=== PATIENT | female | born 1990 | race American Indian/Alaskan Native ===

== ENCOUNTER 2017-10-29 22:06 | Emergency (ER) | payer MEDICAID ==
[2017-10-29 22:28] VITALS: BP 123/69
[2017-10-29 23:03] LABS: Bilirubin,Urine NEG (Negative); Blood,Urine NEG (Negative); Color,Urine Yellow (Yellow); Mucus,Urine FEW /HPF; Protein,Urine <15 mg/dL mg/dL (Negative); Urobilinogen,Urine < 2.0 mg/dL (<2.0)
[2017-10-29 23:11] LABS: Basophils % (Auto) 0.6 % (0.0-1.8); Eosinophils # (Auto) 0.1 K/mm3 (0.0-0.4); Eosinophils % (Auto) 0.8 % (0.0-4.3); Hematocrit 37.1 % (30.3-42.9); Hemoglobin 11.8 gm/dl (10.1-14.3); Lymphocytes # (Auto) 2.3 K/mm3 (1.2-5.4); Lymphocytes % (Auto) 31.1 % (13.4-35.0); Mean Corpuscular HGB Conc 32 % (30-34); Mean Corpuscular Hemoglobin 28 pg (28-32); Mean Corpuscular Volume 89 fl (79-97); Monocytes # (Auto) 0.6 K/mm3 (0.0-0.8); Monocytes % (Auto) 8.3 % (0.0-7.3); Platelet Count 350 K/mm3 (140-440); Red Blood Count 4.17 M/mm3 (3.65-5.03); Red Cell Distribution Width 13.8 % (13.2-15.2)
[2017-10-29 23:27] LABS: Alanine Aminotransferase 11 units/L (7-56); Albumin 3.9 g/dL (3.9-5); BUN/Creatinine Ratio 16; Blood Urea Nitrogen 13 mg/dL (7-17); Calcium 8.7 mg/dL (8.4-10.2); Hemolysis Index 28
== END 2017-10-30 01:06 | disposition left against medical advice (07) ==
LOC: ED 22:06
DX: M54.9 Dorsalgia, unspecified (principal); Z53.21 Procedure and treatment not carried out due to patient leaving prior to being seen by health care provider
CPT/HCPCS: 36415; 80053; 81001; 84703; 85025

== ENCOUNTER 2018-04-22 14:13 | Outpatient (CLI) | payer MEDICAID ==
[2018-04-22 14:37] VITALS: BP 109/69
[2018-04-22] MEDS ORDERED: LACTATED RINGERS 500 ML IV ONE (15:00)
[2018-04-22 15:25] LABS: Bilirubin,Urine NEG (Negative); Blood,Urine NEG (Negative); Color,Urine Amber (Yellow); Mucus,Urine 2+ /HPF
[2018-04-22] MEDS ORDERED: BRETHINE ONE (16:20)
[2018-04-22] MEDS ORDERED: BRETHINE SUB-Q ONE (16:22)
== END 2018-04-22 17:15 | disposition home or self-care (01) ==
LOC: TRG 14:13
PROVIDERS: ATTEND Obstetrics & Gynecology
DX: O47.03 False labor before 37 completed weeks of gestation, third trimester (principal); Z3A.31 31 weeks gestation of pregnancy
CPT/HCPCS: 36415; 81001; 82731; J3105; J7120

== ENCOUNTER 2018-04-22 20:15 | Outpatient (CLI) | payer MEDICAID ==
[2018-04-22] MEDS ORDERED: TYLENOL PO ONE (21:20)
[2018-04-22] MEDS ORDERED: MACROBID PO ONE (21:20)
[2018-04-22 21:23] VITALS: BP 109/69
== END 2018-04-22 22:53 | disposition home or self-care (01) ==
LOC: TRG 20:15
PROVIDERS: ATTEND Obstetrics & Gynecology
DX: O47.03 False labor before 37 completed weeks of gestation, third trimester (principal); Z3A.31 31 weeks gestation of pregnancy
CPT/HCPCS: 59025

== ENCOUNTER 2018-07-31 08:34 | Day surgery (SDC) | payer MEDICAID ==
--- NOTE | 2018-07-27 17:48 | History and Physical Report ---
History of Present Illness Date of examination: 07/27/18 Date of admission: 07/31/2018 Chief complaint: here for tubal ligation History of present illness: Visit Type: Pre-Op CC: pre op. History of Present Illness: pt presents for pre op: Tubal ...meredith Patient here for pre op for BTL. All risk/benefits/alternatives were d/w pt and questions were addressed and answered. Consents were signed and placed on the chart. Pt was given pre op and post op instructions. Copies of the consents were also given to pt to present at the time of the surgery. Vital Signs: Patient Profile: 28 Years Old Female LMP: 07/23/2018 Height: 60 inches Weight: 163 pounds BMI: 31.83 BP sittin / 64 (left arm) Menstrual History: LMP (date): 07/23/2018 LMP - Character: heavy Current Method of Contraception: Abstinence [OB-New Pt-Past Preg Hx-CCC] [employer] History Uterine Surgery (not C/S): negative Operations: TAB Denies any prior history of complications from anesthesia. Abnormal PAP: negative Uterine Anomaly: negative LUANNE Exposure: negative Infertility: negative Infection History HIV Risk Eval: no TB exposure: no Personal hx. of genital herpes: no Partner hx. of genital herpes: no Hx of STD: none Active Medications (reviewed today): ANUSOL-HC 2.5 % RECTAL CREAM (HYDROCORTISONE) apply bid prn hemorroid pain Current Allergies (reviewed today): * PENICILLIN (Critical) Past Medical History: Reviewed history from 12/06/2017 and no changes required: Negative Past Medical History Past Surgical History: Reviewed history from 12/06/2017 and no changes required: TAB Denies any prior history of complications from anesthesia. [--[facility]] Risk Factors: Smoked Tobacco Use: Never smoker Smokeless Tobacco Use: Never Drug use: no HIV high-risk behavior: no Alcohol use: no Seatbelt use: 100 % [[facility]] [Labs In-House] Physical Exam Appearance: well developed, well nourished, no acute distress Other Exams Lungs: no rales, rhonchi, or wheezes Heart: S1, S2, no murmur, rub, or gallop Abdomen: soft, non-tender, no masses, bowel sounds normal Extremities: normal alignment, no joint enlargement, crepitus, masses or tenderness; normal tone and strength Genitourinary Exam Vulva: normal, no lesions or discharge Urethral meatus: normal size and location, no lesions or discharge Urethra: no discharge Bladder: no cystocele Vagina: normal appearance, no discharge, lesions. No evidence of cystocele or rectocele. Cervix: normal appearance, no lesions, no discharge Uterus: normal position, midline, mobile Adnexa: no masses or tenderness Rectal exam: no masses or tenderness Diagonal conjugate: normal Spines: average Sacrum: concave Subpubic arch: normal Pelvic type: gynecoid Past History Past Medical History: no pertinent history Past Surgical History: D&C [employer] History: abnormal PAP smear Family/Genetic History: other (see hpi) Social history: no significant social history - Obstetrical History : 6 Medications and Allergies Allergies Allergy/AdvReac Type Severity Reaction Status Date / Time Penicillins Allergy Hives Verified 07/27/18 07:50 Home Medications Medication Instructions Recorded Confirmed Last Taken Type RX: No Known Home Medications [No 07/27/18 07/27/18 Unknown History Reported Home Medications] Review of Systems All systems: negative - Physical Exam Cardiovascular: Normal S1, Normal S2 Lungs: Positive: Clear to auscultation Abdomen: Positive: normal appearance, soft. Negative: distention, tenderness, guarding Genitourinary (Female): Positive: other (deferred until EUA) Uterus: Positive: normal size Extremities: Positive: normal. Negative: tenderness, edema Results All other labs normal. Assessment and Plan - Patient Problems (1) Encounter for sterilization Status: Acute Plan to address problem: -admit and prepare for BTL -all risk, benefits, and alternatives were d/w pt and questions were addressed and answered.Consents were signed and placed on the chart.
[~2018-07-31 08:34] MED LIST: CLEOCIN 600 MG/50 mL 600 MG/50 ML BAG IV NR; DEMEROL IV PRN; DILAUDID IV PRN; GENTAMICIN IV SCH; GENTAMICIN/NS 120MG/100ML 120 MG/100 ML BAG IV ONE; TORADOL IV PRN; ZOFRAN IV PRN
[2018-07-31] MEDS ORDERED: LACTATED RINGERS 1,000 ML IV SCH ×2 (09:00→10:00)
[2018-07-31] MEDS ORDERED: VERSED IV NR (09:00)
[2018-07-31] MEDS ORDERED: MARCAINE 0.5% INFILTRATI ONE ×2 (09:26→11:24)
[2018-07-31 09:52] LABS: Hematocrit 34.9 % (30.3-42.9); Hemoglobin 11.3 gm/dl (10.1-14.3); Mean Corpuscular HGB Conc 32 % (30-34); Mean Corpuscular Volume 93 fl (79-97); Platelet Count 261 K/mm3 (140-440); Red Blood Count 3.77 M/mm3 (3.65-5.03); Red Cell Distribution Width 14.3 % (13.2-15.2)
[2018-07-31] MEDS ORDERED: GENTAMICIN/NS 120MG/100ML 120 MG/100 ML BAG IV ONE (10:00)
--- NOTE | 2018-07-31 10:19 | Anesthesia Day of Surgery ---
Anesthesia Day of Surgery - Day of Surgery Patient Examined: Yes Patient H&P Reviewed: Yes Patient is NPO: Yes
--- NOTE | 2018-07-31 10:20 | Anesthesia Consultation ---
Anesthesia Consult and Med Hx Date of service: 07/31/18 - Airway Anesthetic Teeth Evaluation: Good ROM Head & Neck: Adequate Mental/Hyoid Distance: Adequate Mallampati Class: Class I Intubation Access Assessment: Good - Pulmonary Exam CTA: Yes - Cardiac Exam Cardiac Exam: RRR - Pre-Operative Health Status ASA Pre-Surgery Classification: ASA1 Proposed Anesthetic Plan: General - Pulmonary Hx Smoking: No Hx Asthma: No COPD: No Hx Pneumonia: No - Cardiovascular System Hx Hypertension: No - Central Nervous System Hx Seizures: No Hx Psychiatric Problems: No - Endocrine Hx Renal Disease: No Hx End Stage Renal Disease: No Hx Hypothyroidism: No Hx Hyperthyroidism: No - Hematic Hx Anemia: No Hx Sickle Cell Disease: No - Other Systems Hx Alcohol Use: No Hx Cancer: No
[2018-07-31] MEDS ORDERED: DILAUDID ONE (10:26)
[2018-07-31] MEDS ORDERED: DIPRIVAN 10 MG/ML IV ONE (10:26)
[2018-07-31] MEDS ORDERED: XYLOCAINE MPF 2% ONE (10:28)
[2018-07-31] MEDS ORDERED: ZEMURON IV ONE (10:28)
[2018-07-31] MEDS ORDERED: QUELICIN ONE (10:28)
[2018-07-31] MEDS ORDERED: DECADRON ONE (11:35)
[2018-07-31] MEDS ORDERED: BLOXIVERZ ONE (11:35)
[2018-07-31] MEDS ORDERED: ROBINUL ONE (11:35)
[2018-07-31] MEDS ORDERED: TORADOL ONE (11:48)
[2018-07-31] MEDS ORDERED: ZOFRAN ONE (11:49)
--- NOTE | 2018-07-31 11:49 | Operative Report ---
Operative Report Operative Report: Date of procedure: 07/31/2018 Pre-operative diagnosis: Desires firm sterilization Post-operative diagnosis: Same Procedure name(s): Laparoscopic bilateral salpingectomy Surgeon: Dr. Em Horizontal Boring Mill Operator: Certified surgical scrub plumber's assistant Anesthesia: Gen. endotracheal anesthesia Anesthesiologist: Dr. Gray EBL: Minimal Urine output: 25 mL of clear urine out prior to the onset of the procedure Fluids: 300 mL Findings: Grossly normal fallopian tubes and ovaries bilaterally normal uterus Indications: Patient presents desires permanent sterilization. All risks benefits and alternatives were discussed with the patient. Patient desired bilateral salpingectomy. The sister signed and placed on the chart. Procedure: Patient was taken to the operating room and which she was placed under general endotracheal anesthesia. Patient was then prepped and draped in sterile fashion and placed in dorsal lithotomy position in Fish stirrups. Patient underwent straight catheterization. Attention was then turned to the vagina in which intraocular lip of the cervix was grasped with a single-tooth tenaculum. The uterus was sounded to approximately 8 cm. A Humi uterine manipulator was placed without difficulty. Attention was then turned to the umbilicus and which an infraumbilical incision was made with the scalpel 5mm trocar was placed using direct visualization with the camera. Abdomen was then insufflated with gas. Under direct visualization a second 8 mm trocar and 5 mm were placed. The left fallopian tilt was then elevated using the grasper cauterized and ligated and passed off to pathology. Excellent hemostasis was noted. This was repeated on the right side. After tubal ligation was completed all instruments were removed from the abdomen under direct visualization. All gas was also released from the abdomen. l. The skin was approximated with 4-0 Monocryl in a subcuticular stitch. Surgicel surgical glue was placed over all incisions. All incisions were injected with Marcaine without epi. The patient tolerated procedure well. Sponge, lap, and needle counts were all correct x3 the patient was taken to the recovery room awake and in stable condition.
--- NOTE | 2018-07-31 11:52 | Short Stay Summary ---
Short Stay Documentation Date of service: 07/31/18 - History H&P: dictated Social history: no significant social history - Allergies and Medications Current Medications: Allergies Penicillins Allergy (Verified 07/27/18 07:50) Hives Home Medications Medication Instructions Recorded Confirmed Last Taken Type Ibuprofen 800 mg PO Q6HR #30 tablet 07/31/18 Unknown Rx oxyCODONE /ACETAMINOPHEN [Percocet 1 tab PO Q4HR #30 tab 07/31/18 Unknown Rx 5/325] Active Medications Hydromorphone HCl (Dilaudid) 0.5 mg IV Q10MIN PRN PRN Reason: Pain , Severe (7-10) Stop: 07/31/18 20:00 Lactated Ringer's (Lactated Ringers) 1,000 mls @ 100 mls/hr IV DIRECT ERLIN Last Admin: 07/31/18 09:35 Dose: 100 mls/hr Documented by: Ketorolac Tromethamine (Toradol) 30 mg IV ONCE PRN PRN Reason: Pain, Moderate (4-6) Meperidine HCl (Demerol) 25 mg IV ONCE PRN PRN Reason: Shivering Stop: 07/31/18 20:00 Midazolam HCl (Versed) 2 mg IV PREOP NR Stop: 07/31/18 23:59 Last Admin: 07/31/18 10:07 Dose: 2 mg Documented by: Ondansetron HCl (Zofran) 4 mg IV ONCE PRN PRN Reason: Nausea And Vomiting - Brief post op/procedure progress note Date of procedure: 07/31/18 Pre-op diagnosis: desires permanent sterilization Post-op diagnosis: same Procedure: Laparoscopic bilateral salpingectomy Anesthesia: GETA Findings: See operative report Surgeon: KEMI MENDOZA Estimated blood loss: minimal Pathology: list (left and right tube segments) Specimen disposition: to lab Condition: stable - Hospital course Hospital course: Patient admitted for above-stated procedure. Patient underwent above stated procedure that was not complicated. Patient was taken to the PACU awake and in stable condition. Patient remained in the PACU until criteria met for discharge. Patient was subsequently discharged thereafter. - Disposition Condition at discharge: Good Disposition: DC-01 TO HOME OR SELFCARE - Discharge Diagnoses (1) Encounter for sterilization Status: Acute Short Stay Discharge Plan Activity: no restrictions, advance as tolerated Diet: regular Wound: open to air Follow up with: REMEDIOS JULIAN MD [Primary Care Provider] - 7 Days Prescriptions: Ibuprofen 800 mg PO Q6HR #30 tablet oxyCODONE /ACETAMINOPHEN [Percocet 5/325] 1 tab PO Q4HR #30 tab
--- NOTE | 2018-07-31 13:50 | Post Anesthesia Evaluation ---
- Post Anesthesia Evaluation Patient Participated: Yes Airway Patent: Yes Stable Respiratory Function: Yes Nausea/Vomiting: No Temp > 96.8F: Yes Pain Manageable: Yes Adequeate Hydration: Yes Anesthesia Complications: No
[2018-07-31 14:22] VITALS: BP 106/71
== END 2018-07-31 08:35 | disposition home or self-care (01) ==
LOC: OR 08:34
PROVIDERS: ATTEND Obstetrics & Gynecology
DX: Z30.2 Encounter for sterilization (principal); G43.909 Migraine, unspecified, not intractable, without status migrainosus; Z88.0 Allergy status to penicillin; Z79.899 Other long term (current) drug therapy; Z98.890 Other specified postprocedural states
CPT/HCPCS: 36415; 58670; 81025; 85027; 88302; J0330; J1100; J1170; J1580; J1885; J2250; J2405; J2704; J2710; J7120

== ENCOUNTER 2019-01-04 13:15 | Emergency (ER) | payer MEDICAID, OTHER ==
[2019-01-04 13:22] VITALS: BP 127/78
[2019-01-04] MEDS ORDERED: MOTRIN PO ONE (14:06)
[2019-01-04] MEDS ORDERED: SODIUM CHLORIDE FLUSH SYRINGE 10 ML IV PRN (14:06)
[2019-01-04] MEDS ORDERED: XYLOCAINE 2%/EPI 1:100,000 INFILTRATI ONE (14:06)
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
== END 2019-01-04 15:44 | disposition home or self-care (01) ==
LOC: ED 13:15
DX: S01.511A Laceration without foreign body of lip, initial encounter (principal); G43.909 Migraine, unspecified, not intractable, without status migrainosus; Y08.89XA Assault by other specified means, initial encounter; Y93.89 Activity, other specified; Y92.89 Other specified places as the place of occurrence of the external cause; Y99.8 Other external cause status
CPT/HCPCS: 70150

== ENCOUNTER 2019-08-20 12:15 | Emergency (ER) | payer SELFPAY ==
[2019-08-20 12:24] VITALS: BP 115/62
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
--- NOTE | 2019-08-20 12:48 | XRay Report ---
CHEST 2 VIEWS INDICATION / CLINICAL INFORMATION: Chest pain and shortness of breath. COMPARISON: None available. FINDINGS: SUPPORT DEVICES: None. HEART / MEDIASTINUM: The heart size and pulmonary vasculature are normal. The aorta is normal in rogerio roger. LUNGS / PLEURA: No significant pulmonary or pleural abnormality. No pneumothorax. ADDITIONAL FINDINGS: No significant additional findings. IMPRESSION: No acute findings. Signer Name: Bharathi Najera MD Signed: 08/20/2019 12:44 PM Workstation Name: [id number]
--- NOTE | 2019-08-20 18:09 | Emergency Department Report ---
Minor Respiratory - HPI Chief Complaint: Upper Respiratory Infection Stated Complaint: CP/ CANT BREATH Time Seen by Provider: 08/20/19 18:06 Duration: 5 Days Minor Respiratory: Yes Cough, Yes Chest Pain (with cough) Other History: 29-year-old female presents to the emergency room complaining of cough body aches and chest pain since Monday. Patient reports she is taking NyQuil, ibuprofen last dose yesterday and TheraFlu. Patient denies any past medical history takes no medications on a daily basis and is allergic to penicillin. ED Review of Systems ROS: Stated complaint: CP/ CANT BREATH Other details as noted in HPI Comment: All other systems reviewed and negative ED Past Medical Hx - Past Medical History Hx Hypertension: No Hx Congestive Heart Failure: No Hx Diabetes: No Hx Deep Vein Thrombosis: No Hx Renal Disease: No Hx Sickle Cell Disease: No Hx Headaches / Migraines: Yes (Migraines) Hx Seizures: No Hx Asthma: No Hx COPD: No Hx HIV: No - Surgical History Past Surgical History?: No - Social History Smoking Status: Never Smoker Substance Use Type: None - Medications Home Medications: Home Medications Medication Instructions Recorded Confirmed Last Taken Type Ibuprofen [Ibuprofen 800] 800 mg PO Q6HR #30 tablet 07/31/18 Unknown Rx oxyCODONE /ACETAMINOPHEN [Percocet 1 tab PO Q4HR #30 tab 07/31/18 Unknown Rx 5/325] Acetaminophen [Non-Aspirin Extra 500 mg PO Q6HR PRN #30 tablet 01/04/19 Unknown Rx Strength] Chlorhexidine Mouthwash [Peridex] 15 ml MM BID #1 bottle 01/04/19 Unknown Rx Ibuprofen [Motrin] 600 mg PO Q8H PRN #30 tablet 01/04/19 Unknown Rx Minor Respiratory Exam - Exam General: Vital signs noted. No distress. Alert and acting appropriately. HEENT: Yes Moist Mucous Membranes, No Pharyngeal Erythema, No Pharyngeal Exudates, No Rhinorrhea, No Conjuctival Injection, No Frontal Tenderness, No Maxillary Tenderness Ear: Neither TM Bulge, Neither TM Erythema, Neither EAC Pain, Neither EAC Discharge Neck: Yes Supple, No Adenopathy Lungs: Yes Good Air Exchange, No Wheezes, No Ronchi, No Stridor, No Cough, No Labored Respirations, No Retractions, No Use of Accessory Muscles, No Other Abnormal Lung Sounds Heart: Yes Regular, No Murmur Abdomen: Yes Normal Bowel Sounds, No Tenderness, No Peritoneal Signs Skin: No Rash, No Edema Neurologic: Alert and oriented, no deficits. Musculoskeletal: Unremarkable. ED Course Vital Signs 08/20/19 12:18 Temperature 98.1 F Pulse Rate 74 Respiratory 18 Rate Blood Pressure 115/62 O2 Sat by Pulse 100 Oximetry ED Medical Decision Making - Radiology Data Radiology results: report reviewed Patient: MANSI BARRERA MR#: [id number] : 1990 Acct:[id number] Age/Sex: 29 / F ADM Date: 08/20/19 Loc: ED Attending Dr: Ordering Physician: DAHLIA RUDD Date of Service: 08/20/19 Procedure(s): XR chest routine 2V Accession Number(s): [id number] cc: DAHLIA RUDD Fluoro Time In Minutes: CHEST 2 VIEWS INDICATION / CLINICAL INFORMATION: Chest pain and shortness of breath. COMPARISON: None available. FINDINGS: SUPPORT DEVICES: None. HEART / MEDIASTINUM: The heart size and pulmonary vasculature are normal. The aorta is normal in caliber. LUNGS / PLEURA: No significant pulmonary or pleural abnormality. No pneumothorax. ADDITIONAL FINDINGS: No significant additional findings. IMPRESSION: No acute findings. Signer Name: Bharathi Najera MD Signed: 08/20/2019 12:44 PM Workstation Name: [id number] Transcribed By: RT Dictated By: Bharathi Najera MD Electronically Authenticated By: Bharathi Najera MD Signed Date/Time: 08/20/19 1244 DD/ 1243 TD/TT: - Medical Decision Making 29-year-old female presents to the emergency room complaining of cough body aches and chest pain since Monday. Patient reports she is taking NyQuil, ibuprofen last dose yesterday and TheraFlu. Patient denies any past medical history takes no medications on a daily basis and is allergic to penicillin. Chest x-ray is negative for any acute findings. She had a normal physical examination. I discussed the patient she can continue with supportive care take ibuprofen Claritin and Flonase and to follow-up with her primary care provider. He reported to me since her chest x-ray is negative that she is just going to leave asked patient to sign AMA paperwork. Paperwork was given to nursing staff staff went to have patient sign she dipped out and left. Critical care attestation.: If time is entered above; I have spent that time in minutes in the direct care of this critically ill patient, excluding procedure time. ED Disposition Clinical Impression: Viral syndrome Disposition: ELOPED Is pt being admited?: No Does the pt Need Aspirin: No Condition: Stable Referrals: PRIMARY CARE, [Primary Care Provider] - 3-5 Days Forms: AMA Form
== END 2019-08-20 18:28 | disposition left against medical advice (07) ==
LOC: ED 12:15
DX: B34.9 Viral infection, unspecified (principal); G43.909 Migraine, unspecified, not intractable, without status migrainosus; Z79.899 Other long term (current) drug therapy; Z88.0 Allergy status to penicillin
CPT/HCPCS: 71046